=== PATIENT | male | born 1955 | race Hispanic/Latino ===

== ENCOUNTER 2019-04-01 18:12 | Inpatient (IN) | payer OTHER ==
[~2019-04-01] VITALS: Ht 167.6 cm; Wt 79.5 kg
[2019-04-01] MEDS ORDERED: HYDROCODONE/ACETAMINOPHEN 10/325 MG TAB ONE (19:05)
[2019-04-01] MEDS ORDERED: ONDANSETRON HCL 4 MG/2 ML VIAL ONE (21:37)
[2019-04-01] MEDS ORDERED: MORPHINE SULFATE 4 MG/1ML SYG ONE (21:37)
[2019-04-01 21:49] LABS: BASOPHILS % (AUTO) 0.4 % (0.0-5.0); EOSINOPHILS % (AUTO) 1.5 % (0.0-8.0); MEAN CORPUSCULAR HEMOGLOBIN 29.5 pg (27.0-33.0); MEAN CORPUSCULAR HGB CONC 33.6 g/dL (32.0-36.0); MEAN CORPUSCULAR VOLUME 87.7 fL (79-99); MONOCYTES % (AUTO) 4.1 % (3.0-13.0); PLATELET COUNT (AUTO) 189 K/uL (130-400); RED BLOOD CELL COUNT(AUTO) 3.08 MIL/uL (4.50-6.20); RED CELL DISTRIBUTION WIDTH 15.3 % (11.0-15.5); WHITE BLOOD COUNT (AUTO) 13.2 K/uL (4.8-10.8)
[2019-04-01 22:11] LABS: ALBUMIN 2.2 g/dL (3.5-5.0); BILIRUBIN,TOTAL 0.3 mg/dL (0.2-1.0); CREATININE 7.4 mg/dL (0.5-1.5); POTASSIUM 3.8 mmol/L (3.5-5.1); TOTAL PROTEIN, SERUM 6.2 g/dL (6.0-8.3)
[2019-04-01 22:14] LABS: INR 1.01 (0.85-1.15); PARTIAL THROMBOPLASTIN TIME 25.4 SEC (26.3-35.5); PROTHROMBIN TIME 10.4 SEC (9.6-11.6)
[2019-04-02] MEDS ORDERED: HYDROCODONE/ACETAMINOPHEN 5/325 MG TAB PO PRN (01:00)
[2019-04-02] MEDS: CEFTRIAXONE SODIUM 1 GM IV SCH (01:00)
[2019-04-02] MEDS ORDERED: ONDANSETRON HCL 4 MG/2 ML VIAL IVP PRN (01:00)
[2019-04-02] MEDS ORDERED: CEFTRIAXONE SODIUM 1 GM ONE (03:02)
[2019-04-02] MEDS ORDERED: HYDRALAZINE HCL 20 MG/ML VIAL ONE (03:34)
[2019-04-02] MEDS ORDERED: HYDROCODONE/ACETAMINOPHEN 5/325 MG TAB ONE (03:34)
[2019-04-02 04:09] LABS: BASOPHILS % (AUTO) 0.4 % (0.0-5.0); EOSINOPHILS % (AUTO) 0.9 % (0.0-8.0); HEMATOCRIT 26.1 % (42-54); LYMPHOCYTES % (AUTO) 10.2 % (21.0-51.0); MEAN CORPUSCULAR HEMOGLOBIN 29.8 pg (27.0-33.0); MEAN CORPUSCULAR VOLUME 87.6 fL (79-99); MONOCYTES % (AUTO) 3.6 % (3.0-13.0); NEUTROPHILS % (AUTO) 84.9 % (40.0-77.0); PLATELET COUNT (AUTO) 183 K/uL (130-400); RED BLOOD CELL COUNT(AUTO) 2.98 MIL/uL (4.50-6.20); RED CELL DISTRIBUTION WIDTH 15.5 % (11.0-15.5); WHITE BLOOD COUNT (AUTO) 11.1 K/uL (4.8-10.8)
[2019-04-02 04:15] LABS: BILIRUBIN,TOTAL 0.3 mg/dL (0.2-1.0); POTASSIUM 4.1 mmol/L (3.5-5.1); TOTAL PROTEIN, SERUM 5.8 g/dL (6.0-8.3)
[2019-04-02 07:55] VITALS: BP 141/80
--- NOTE | 2019-04-02 08:30 | NUR ---
DR. BAXTER SPOKE TO MD VIA TELEPHONE REGARDING CONSULT. ORDERS PLACED.
[2019-04-02] MEDS ORDERED: FAMOTIDINE/PF 20 MG/2 ML VIAL IV SCH (09:00)
[2019-04-02] MEDS: HEPARIN SODIUM 5000UNIT/ML 1ML VIAL SQ SCH ×3 (11:30→23:09)
[2019-04-02] MEDS: FAMOTIDINE/PF 20 MG/2 ML VIAL IV SCH ×2 (11:32→23:09)
[2019-04-02 11:41] VITALS: BP 149/66
[2019-04-02] MEDS ORDERED: ACETAMINOPHEN 325 MG TAB PO PRN (13:45)
--- NOTE | 2019-04-02 13:50 | NUR ---
DR. JAMIA LUNA PAGED REGARDING CONSULT.
--- NOTE | 2019-04-02 16:00 | NUR ---
cm note met with pt and spouse, spouse states pt resides at home with her and is independent with adls and ambulation. no dme. no services. states goes to [facility] in [facility] for meds and MD followup. states dc plan is back to home.and she can assist him at home as needed. informed that pt will need a standard walker for Postop rehab, states she will try to borrow one. will continue to followup as needed. Addendum: 04/02/19 at 1950 by NIKKO PAK CM Amended: Links added.
[2019-04-02 16:09] VITALS: BP 143/75
--- NOTE | 2019-04-02 17:45 | NUR ---
DR. LUGO SPOKE TO MD VIA TELEPHONE REGARDING CONSULT. MD PLACED ORDERS.
--- NOTE | 2019-04-02 17:55 | NUR ---
DR. BAXTER MD HERE TO SEE PATIENT. MD SPOKE TO PATIENT AND REGARDING NEED FOR POSSIBLE SURGICAL PROCEDURE, BUT PATIENT WOULD NEED MEDICAL CLEARANCE FROM CONSULTS PRIOR TO SURGICAL INTERVENTION. DR. BAXTER FILLED INFORMED CONSENT AND PLACED IN PATIENT CHART.
[2019-04-02 19:03] VITALS: BP 92/40
[2019-04-02 19:30] LABS: ABG BASE EXCESS -7.6 mmol/L (-2.0-3.0); ABG HCO3 18.6 mmol/L (21.0-28.0); ABG OXYGEN SATURATION 99.5 % (95.0-99.0); ABG PCO2 40 mmHg (35-48)
[2019-04-02 19:45] LABS: HEMATOCRIT 24.2 % (42-54); MEAN CORPUSCULAR HEMOGLOBIN 30.5 pg (27.0-33.0); MEAN CORPUSCULAR VOLUME 89.7 fL (79-99); PLATELET COUNT (AUTO) 150 K/uL (130-400); RED CELL DISTRIBUTION WIDTH 15.4 % (11.0-15.5); WHITE BLOOD COUNT (AUTO) 10.5 K/uL (4.8-10.8)
[2019-04-02 19:56] LABS: PHOSPHORUS 7.4 mg/dL (2.5-4.9)
[2019-04-02 20:00] VITALS: BP 159/71
[2019-04-02] MEDS ORDERED: METO50TA18 PO (20:09)
[2019-04-02] MEDS ORDERED: FURO80TA3 PO (20:09)
[2019-04-02] MEDS ORDERED: ATOR10 PO (20:09)
[2019-04-02] MEDS ORDERED: FOLI0.8T22 PO (20:09)
[2019-04-02 22:00] LABS: BAND NEUTROPHILS % (MANUAL) 1 % (0-2); EOSINOPHILS % (MANUAL) 1 % (1-6); LYMPHOCYTES % (MANUAL) 5 % (22-44); MONOCYTES % (MANUAL) 1 % (2-9); SEGMENTED NEUTROPHILS % 92 % (40-70)
[2019-04-02 22:02] LABS: MAN.DIFF COMMENT-IMPRESSION MANUAL DIFFERENTIAL; PLATELET MORPHOLOGY COMMENT ADEQUATE
[2019-04-02] MEDS ORDERED: FUROSEMIDE 10 MG/ML 4ML VIAL IV SCH (23:00)
[2019-04-02] MEDS: HYDROCODONE/ACETAMINOPHEN 5/325 MG TAB PO PRN (23:10)
[2019-04-02] MEDS ORDERED: FUROSEMIDE 10 MG/ML 4ML VIAL ONE (23:15)
[2019-04-03] VITALS (7 sets, daily range): BP systolic 138–190; BP diastolic 66–98
[2019-04-03] MEDS: CEFTRIAXONE SODIUM 1 GM IV SCH (00:15)
[2019-04-03] MEDS: HYDROCODONE/ACETAMINOPHEN 5/325 MG TAB PO PRN ×2 (03:24→09:35)
[2019-04-03 05:18] LABS: HEMATOCRIT 23.7 % (42-54); MEAN CORPUSCULAR HEMOGLOBIN 29.9 pg (27.0-33.0); MEAN CORPUSCULAR HGB CONC 34.3 g/dL (32.0-36.0); MEAN CORPUSCULAR VOLUME 87.3 fL (79-99); PLATELET COUNT (AUTO) 162 K/uL (130-400); RED BLOOD CELL COUNT(AUTO) 2.71 MIL/uL (4.50-6.20); RED CELL DISTRIBUTION WIDTH 15.3 % (11.0-15.5); WHITE BLOOD COUNT (AUTO) 11.7 K/uL (4.8-10.8)
[2019-04-03 05:27] LABS: MAGNESIUM 1.9 mg/dL (1.80-2.40); PHOSPHORUS 7.5 mg/dL (2.5-4.9); URIC ACID 7.9 mg/dL (2.6-7.2)
[2019-04-03 05:39] LABS: % IRON SATURATION 7.3 % (30-44)
[2019-04-03 05:45] LABS: CREATININE 8.3 mg/dL (0.5-1.5)
[2019-04-03 05:46] LABS: LYMPHOCYTES % (MANUAL) 9 % (22-44); MONOCYTES % (MANUAL) 5 % (2-9); SEGMENTED NEUTROPHILS % 86 % (40-70)
[2019-04-03 05:47] LABS: MAN.DIFF COMMENT-IMPRESSION MANUAL DIFFERENTIAL
[2019-04-03 05:48] LABS: PLATELET MORPHOLOGY COMMENT ADEQUATE
[2019-04-03] MEDS: FOLIC ACID/VITAMIN B COMP W-C 1 MG CAP/TAB PO SCH (09:00)
[2019-04-03] MEDS ORDERED: FOLIC ACID/VITAMIN B COMP W-C 1 MG CAP/TAB PO SCH (09:00)
[2019-04-03] MEDS: METOPROLOL TARTRATE 50 MG TAB PO SCH ×2 (09:37→22:30)
[2019-04-03] MEDS: FAMOTIDINE/PF 20 MG/2 ML VIAL IV SCH ×2 (09:39→22:30)
[2019-04-03] MEDS: HEPARIN SODIUM 5000UNIT/ML 1ML VIAL SQ SCH ×3 (10:00→22:36)
[2019-04-03] MEDS ORDERED: FUROSEMIDE 10 MG/ML 4ML VIAL IV SCH (10:45)
--- NOTE | 2019-04-03 11:58 | NUR ---
EVELIA DE LA CRUZ FOR CARDIOLOGY SPOKE TO EVELIA DE LA CRUZ FOR DR. BLANDON REGARDING CONSULT FOR CARDIOLOGY CLEARANCE. EVELIA DE LA CRUZ REPLIED HE WOULD BE IN TO SEE PATIENT TODAY.
[2019-04-03] MEDS ORDERED: COMPOUND IV MISC 1 EACH IVSOLN MISC PRN (13:15)
[2019-04-03 17:21] LABS: APPEARANCE,URINE CLOUDY (CLEAR); BILIRUBIN,URINE NEGATIVE (NEGATIVE); COLOR,URINE YELLOW (YELLOW); GLUCOSE, URINE (UA) 100 mg/dL (NEGATIVE); KETONES,URINE NEGATIVE (NEGATIVE); LEUKOCYTE ESTERASE ,URINE TRACE (NEGATIVE); NITRATE,URINE NEGATIVE (NEGATIVE); OCCULT BLOOD,URINE TRACE-INTACT (NEGATIVE); PH,URINE 5.5 (5.0-8.0); PROTEIN,URINE >=300 mg/dL (NEGATIVE); UROBILINOGEN,URINE 0.2 mg/dL (0.2-1.0)
[2019-04-03 17:35] LABS: BACTERIA,URINE Moderate /HPF (None Seen); MUCUS,URINE Moderate LPF (None Seen)
[2019-04-03] MEDS: CALCIUM ACETATE 667 MG CAPSULE PO SCH (18:06)
[2019-04-03] MEDS: ATORVASTATIN CALCIUM 10 MG TABLET PO SCH (22:30)
[2019-04-04] VITALS (12 sets, daily range): BP systolic 153–186; BP diastolic 64–82
[2019-04-04 05:56] LABS: BASOPHILS % (AUTO) 0.4 % (0.0-5.0); EOSINOPHILS % (AUTO) 3.6 % (0.0-8.0); HEMATOCRIT 23.7 % (42-54); LYMPHOCYTES % (AUTO) 10.8 % (21.0-51.0); MEAN CORPUSCULAR HEMOGLOBIN 30.3 pg (27.0-33.0); MEAN CORPUSCULAR HGB CONC 34.1 g/dL (32.0-36.0); MEAN CORPUSCULAR VOLUME 88.8 fL (79-99); MONOCYTES % (AUTO) 9.1 % (3.0-13.0); NEUTROPHILS % (AUTO) 76.1 % (40.0-77.0); PLATELET COUNT (AUTO) 170 K/uL (130-400); RED BLOOD CELL COUNT(AUTO) 2.67 MIL/uL (4.50-6.20); RED CELL DISTRIBUTION WIDTH 15.3 % (11.0-15.5); WHITE BLOOD COUNT (AUTO) 11.6 K/uL (4.8-10.8)
[2019-04-04 06:15] LABS: POTASSIUM 4.1 mmol/L (3.5-5.1)
[2019-04-04] MEDS: METOPROLOL TARTRATE 50 MG TAB PO SCH ×2 (06:54→20:25)
[2019-04-04 06:59] LABS: CREATININE 8.8 mg/dL (0.5-1.5)
[2019-04-04] MEDS: CALCIUM ACETATE 667 MG CAPSULE PO SCH ×3 (08:00→17:00)
[2019-04-04] MEDS: HEPARIN SODIUM 5000UNIT/ML 1ML VIAL SQ SCH ×3 (09:00→20:24)
[2019-04-04] MEDS: SODIUM BICARBONATE 650 MG TAB PO SCH (09:00)
[2019-04-04] MEDS ORDERED: EPOETIN ALFA 10,000 UNIT/ML VIAL SQ SCH (09:00)
[2019-04-04] MEDS: FOLIC ACID/VITAMIN B COMP W-C 1 MG CAP/TAB PO SCH (09:00)
--- NOTE | 2019-04-04 11:00 | NUR ---
SPOKE TO PATIENT AFTER HEARING THAT CARDIOLOIGST HAD RECOMMENDED HD PRIOR TO SURGERY ASKED RE STATUS- UNDOCUMENTED. ADVISED PT WE WOULD LOOK AFTER HIM WELL HERE PIROR TO DISCHARGE, BUT [facility] HAS TO HAVE STARTED LOOKING FOR WHEELCHAIR /WKR ON DISCHARGE. MERARIAILY MEMBER VERBALIZED UNDERSTANDING Addendum: 04/04/19 at 1246 by BABITA JUSTIN RN CM Amended: Links added.
[2019-04-04] MEDS: FAMOTIDINE/PF 20 MG/2 ML VIAL IV SCH ×2 (11:06→20:24)
[2019-04-04] MEDS: IRON SUCROSE COMPLEX 200 MG in SODIUM CHLORIDE 0.9% 50 ML IV SCH (11:06)
[2019-04-04] MEDS: AMLODIPINE BESYLATE 5 MG TAB PO SCH (11:06)
--- NOTE | 2019-04-04 13:54 | NUR ---
RD Notification Pt admitted for Left Hip Fracture, Post fall. Pt with Renal Failure (GFR 7, BUN 92, Cr 8.8), not currently on Hemodialysis. Diet advanced from NPO to Renal Non Dialysis Diet Order. RD to continue to monitor for Diet tolerance. Pt with mild to moderate protein caloric malnutrition; Protein supplementation contraindicated secondary to Renal Failure without Dialysis. Pt LBM 04/01/19. Pt monitored labs: Na 135, Cl 100, BUN 92, Cr 8.8, GFR 7, Ca 7.9, Fe 13, TIBC 178, %Sat 7.3, BNP 1550, Alb 2.0. RD to continue to monitor. Please notify RD as nutritional concerns arise. Thank you. Addendum: 04/04/19 at [address] Amended: Links added.
[2019-04-04] MEDS: CEFTRIAXONE SODIUM 500 MG VIAL IV SCH (14:30)
[2019-04-04] MEDS ORDERED: LIDOCAINE HCL 1% MDV 50ML VIAL ONE (16:07)
[2019-04-04 18:29] LABS: HEMATOCRIT 22.3 % (42-54)
[2019-04-04] MEDS ORDERED: HEPARIN SODIUM 5000UNIT/ML 1ML VIAL IJ PRN (18:30)
[2019-04-04] MEDS ORDERED: ACETAMINOPHEN 325 MG TAB PO PRN (18:30)
[2019-04-04] MEDS ORDERED: NITROGLYCERIN 0.4 MG SL TAB SL PRN (18:30)
[2019-04-04] MEDS ORDERED: 0.9% SODIUM CHLORIDE 1000 ML IV BAG IV PRN (18:30)
[2019-04-04] MEDS ORDERED: SODIUM CHLORIDE 0.9% 1000ML 1,000 ML IV PRN (18:30)
[2019-04-04 18:47] LABS: INR 1.03 (0.85-1.15); PARTIAL THROMBOPLASTIN TIME 34.4 SEC (26.3-35.5); PROTHROMBIN TIME 10.8 SEC (9.6-11.6)
[2019-04-04 18:49] LABS: ALBUMIN 1.8 g/dL (3.5-5.0); CREATININE 7.6 mg/dL (0.5-1.5)
[2019-04-04 19:03] LABS: % IRON SATURATION 68.6 % (30-44)
[2019-04-04 19:09] LABS: HEMOGLOBIN A1C 5.6 % (4.0-6.0)
[2019-04-04] MEDS: ATORVASTATIN CALCIUM 10 MG TABLET PO SCH (20:25)
--- NOTE | 2019-04-04 21:38 | NUR ---
PAIN PATIENT COMPLAINS OF SEVERE PAIN TO LEFT LEG WHEN MOVED TO PLACE BEDPAN. PATIENT WAS GIVEN TYLENOL PO BUT STATES IT IS NOT ENOUGH FOR HIS PAIN. Luis Alfredo QUACH NOTIFIED OF PATIENT STATUS AND PATIENT BEING A NEW HEMO DIALYSIS PATIENT. ORDER FOR TORDAL 15MG IV EVERY FOUR HOURS PRN GIVEN. I DID ASK IF SHE WAS SURE OF THIS ORDER DUE TO PATIENT BUN AND CREATININE AND SHE STATES YES THAT IT WAS OK TO GIVE SINCE PATIENT WAS ALREADY ON HEMO DIALYSIS.
[2019-04-04] MEDS ORDERED: KETOROLAC TROMETHAMINE 15MG/ML IV PRN (21:45)
[2019-04-05] VITALS (7 sets, daily range): BP systolic 140–198; BP diastolic 68–89
[2019-04-05] MEDS: HYDRALAZINE HCL 20 MG/ML VIAL IV PRN (04:38)
[2019-04-05 05:33] LABS: BASOPHILS % (AUTO) 0.4 % (0.0-5.0); HEMATOCRIT 24.5 % (42-54); LYMPHOCYTES % (AUTO) 10.6 % (21.0-51.0); MEAN CORPUSCULAR HEMOGLOBIN 29.8 pg (27.0-33.0); MEAN CORPUSCULAR HGB CONC 33.6 g/dL (32.0-36.0); MEAN CORPUSCULAR VOLUME 88.5 fL (79-99); MONOCYTES % (AUTO) 10.4 % (3.0-13.0); NEUTROPHILS % (AUTO) 72.6 % (40.0-77.0); PLATELET COUNT (AUTO) 190 K/uL (130-400); RED BLOOD CELL COUNT(AUTO) 2.77 MIL/uL (4.50-6.20); RED CELL DISTRIBUTION WIDTH 14.8 % (11.0-15.5); WHITE BLOOD COUNT (AUTO) 9.7 K/uL (4.8-10.8)
[2019-04-05 05:48] LABS: POTASSIUM 3.7 mmol/L (3.5-5.1)
[2019-04-05] MEDS: CALCIUM ACETATE 667 MG CAPSULE PO SCH ×3 (08:01→17:00)
[2019-04-05] MEDS: SODIUM BICARBONATE 650 MG TAB PO SCH (08:01)
[2019-04-05] MEDS: METOPROLOL TARTRATE 50 MG TAB PO SCH ×2 (08:02→20:12)
[2019-04-05] MEDS: AMLODIPINE BESYLATE 5 MG TAB PO SCH (08:03)
[2019-04-05] MEDS: HYDROCODONE/ACETAMINOPHEN 5/325 MG TAB PO PRN (08:04)
[2019-04-05] MEDS: FAMOTIDINE/PF 20 MG/2 ML VIAL IV SCH ×2 (08:04→20:12)
[2019-04-05] MEDS: HEPARIN SODIUM 5000UNIT/ML 1ML VIAL SQ SCH ×3 (08:09→20:07)
[2019-04-05] MEDS: CEFTRIAXONE SODIUM 500 MG VIAL IV SCH (09:00)
[2019-04-05] MEDS: IRON SUCROSE COMPLEX 200 MG in SODIUM CHLORIDE 0.9% 50 ML IV SCH (09:52)
[2019-04-05] MEDS: FOLIC ACID/VITAMIN B COMP W-C 1 MG CAP/TAB PO SCH (09:53)
[2019-04-05] MEDS ORDERED: CEFTRIAXONE SODIUM 1 GM ONE (10:02)
[2019-04-05] MEDS ORDERED: MORPHINE SULFATE 2 MG/ML 1ML SYG IVP PRN (11:45)
[2019-04-05] MEDS ORDERED: EPOETIN ALFA 10,000 UNIT/ML VIAL SQ SCH (15:00)
--- NOTE | 2019-04-05 16:46 | NUR ---
ANNA WELCH. NOTIFIED OF PLANS FOR SURGERY AND OF DR. SKY'S NOTE STATED OK TO PROCEED FOR SURGERY TOMORROW PLANNED
--- NOTE | 2019-04-05 17:02 | NUR ---
DR. BAXTER AWARE OF DR. SKY'S NOTES REGARDING RISK FOR SURGERY AND SCORE FOR MAJOR CARDIAC EVEN PER [facility] SCALE STATED "OK"
[2019-04-05] MEDS: ATORVASTATIN CALCIUM 20 MG TABLET PO SCH (20:12)
[2019-04-06] VITALS (24 sets, daily range): BP systolic 135–220; BP diastolic 52–99
--- NOTE | 2019-04-06 07:00 | NUR ---
Patient currently in OR PATIENT CURRENTLY IN SURGICAL PROCEDURE WITH DR. BAXTER AT START OF SHIFT.
[2019-04-06] MEDS ORDERED: ETOMIDATE 2 MG/ML 10 ML VIAL ONE (07:24)
[2019-04-06] MEDS ORDERED: LIDOCAINE PF 2% 5ML ABBOJECT ONE (07:24)
[2019-04-06] MEDS ORDERED: MIDAZOLAM HCL 1 MG/ML 2ML VIAL ONE (07:25)
[2019-04-06] MEDS ORDERED: PROPOFOL 10 MG/ML 20ML VIAL IV ONE (07:25)
[2019-04-06] MEDS ORDERED: ROCURONIUM 10MG/1ML SYR 10 MG/ML ML ONE (07:25)
[2019-04-06] MEDS ORDERED: CEFAZOLIN SODIUM 1 GM VIAL ONE (07:32)
[2019-04-06] MEDS: CALCIUM ACETATE 667 MG CAPSULE PO SCH ×3 (08:00→16:59)
[2019-04-06 08:12] LABS: HEPATITIS Bs ANTIGEN SCREEN P Negative (Negative)
[2019-04-06] MEDS ORDERED: NOREPINEPHRINE BITARTRATE 1 MG/1 ML ML IV ONE (08:40)
[2019-04-06] MEDS ORDERED: ROPIVACAINE 0.5% 5MG/ML 30ML IJ ONE (08:52)
[2019-04-06] MEDS: CEFTRIAXONE SODIUM 500 MG VIAL IV SCH (09:00)
[2019-04-06] MEDS: FAMOTIDINE/PF 20 MG/2 ML VIAL IV SCH ×2 (09:00→20:50)
[2019-04-06] MEDS: HEPARIN SODIUM 5000UNIT/ML 1ML VIAL SQ SCH ×3 (09:00→20:50)
[2019-04-06] MEDS ORDERED: GLYCOPYRROLATE 1 MG/5 ML SYRINGE ONE (09:02)
[2019-04-06] MEDS ORDERED: NEOSTIGMINE 5MG/5ML SYR IV ONE (09:02)
[2019-04-06] MEDS ORDERED: POTASSIUM CHLORIDE 20MEQ/100ML 100 ML IV PRN (09:45)
[2019-04-06] MEDS: ACETAMINOPHEN EXTRA STRENGTH 500 MG TABLET PO SCH ×2 (09:45→16:58)
[2019-04-06] MEDS ORDERED: MORPHINE SULFATE 4 MG/1ML SYG ONE (10:26)
--- NOTE | 2019-04-06 11:02 | NUR ---
BASSAM LOGAN AWARE OF PT'S BP, OK TO SEND PT TO HIS RM. PT WITH DIALYSIS ACCESS TO RT NECK AREA, INTACT. PT STABLE. Addendum: 04/06/19 at 1302 by CALLIE PIRES RN RN Amended: Links added.
[2019-04-06] MEDS: HYDRALAZINE HCL 20 MG/ML VIAL IV PRN (12:10)
[2019-04-06] MEDS: METOPROLOL TARTRATE 50 MG TAB PO SCH ×2 (12:11→20:50)
[2019-04-06] MEDS: AMLODIPINE BESYLATE 5 MG TAB PO SCH (12:12)
--- NOTE | 2019-04-06 13:35 | NUR ---
DIET EDUCATION RD provided Renal Dialysis Diet Education to Pt's Spouse as spouse was resting and is sole meal provider in household. RD reviewed reference materials with Pt's . Pt's with questions, RD answered all questions. RD also provided Maori/Guamanian translation of materials for Pt to review. Pt to further review reference materials. HERBIE encouraged Pt and to notify as questions and concerns arise. Addendum: 04/06/19 at [address] Amended: Links added.
--- NOTE | 2019-04-06 13:37 | NUR ---
ATTEMPTED TO INSTRUCT PATIENT ON TECHNIQUE, PT UNABLE TO STAY AWAKE DURINGN INSTRUCTIONS. ATTEMPTED TWICE TO INSTRUCT. UNABLE TO PERFORM IS, INSTRUCTED FAMILY VALERIZULEMA WE WOULD REINSTRUCT WHEN PT IS APPROPRIATE. Addendum: 04/06/19 at 1339 [address]RA RT Amended: Links added.
--- NOTE | 2019-04-06 13:40 | NUR ---
RD FOLLOW UP NOTE Pt NPO at time of screen. RD provided Dialysis Diet Education. Post diet education, Diet advanced to Clear Liquid - Renal Dialysis Diet order. Pt was being fed by and seeming to tolerate. RD to continue to monitor. Recommend to advance diet as tolerated to Renal Dialysis Diet, Regular texture. Once diet is advanced, Recommend Nepro QD with breakfast meal. Pt LBM 04/01/19; Recommend stool softener/laxative. Pt monitored labs: BUN 65, Cr 7.0, GFR 8, Ca 7.5, Alb 1.8. RD to continue to monitor. Please notify RD as additional nutritional concerns arise. Thank you. Addendum: 04/06/19 at [address] Amended: Links added.
[2019-04-06] MEDS: LACTULOSE 20 GM/30 ML UDCUP PO PRN (16:52)
[2019-04-06] MEDS: SODIUM BICARBONATE 650 MG TAB PO SCH (16:52)
[2019-04-06] MEDS: FOLIC ACID/VITAMIN B COMP W-C 1 MG CAP/TAB PO SCH (16:52)
[2019-04-06] MEDS: HYDROCODONE/ACETAMINOPHEN 5/325 MG TAB PO PRN (16:52)
--- NOTE | 2019-04-06 17:00 | NUR ---
HELD PHOSLO BECAUSE PT NOT WANTING TO EAT AT THIS TIME.
[2019-04-06] MEDS ORDERED: CEFTRIAXONE SODIUM 1 GM ONE (17:17)
[2019-04-06] MEDS: ATORVASTATIN CALCIUM 20 MG TABLET PO SCH (20:49)
[2019-04-07 03:31] VITALS: BP 157/64
[2019-04-07 04:10] LABS: HEMATOCRIT 21.9 % (42-54); MEAN CORPUSCULAR HEMOGLOBIN 30.2 pg (27.0-33.0); MEAN CORPUSCULAR HGB CONC 34.4 g/dL (32.0-36.0); MEAN CORPUSCULAR VOLUME 87.6 fL (79-99); PLATELET COUNT (AUTO) 225 K/uL (130-400); RED CELL DISTRIBUTION WIDTH 14.8 % (11.0-15.5); WHITE BLOOD COUNT (AUTO) 10.8 K/uL (4.8-10.8)
[2019-04-07 04:17] LABS: CREATININE 6.2 mg/dL (0.5-1.5); POTASSIUM 4.3 mmol/L (3.5-5.1)
[2019-04-07] MEDS: ACETAMINOPHEN EXTRA STRENGTH 500 MG TABLET PO SCH ×3 (04:23→17:45)
--- NOTE | 2019-04-07 07:59 | NUR ---
HEMATURIA REPORTED PRESENCE OF HEMATURIA WITH BLOOD CLOT IN ANDERSEN CATHETER TUBE. TOLD ME TO HOLD ANTICOAGULANTS AND HE WOULD BE IN SHORTLY TO ASSESS PATIENT. ALSO ASKED ME TO CONTACT DR. BAXTER SINCE ANDERSEN WAS PLACED YESTERDAY DURING SURGICAL PROCEDURE AND DR. BAXTER ALSO ORDERED TO REMOVE ANDERSEN CATHETER POD#2. I [address] BAXTER AND TOLD ME IT WAS OKAY TO REMOVE ANDERSEN CATHETER IF HOSPITALIST OR CONSULT MD'S ORDER TO REMOVE ANDERSEN.
[2019-04-07 08:00] VITALS: BP 151/64
[2019-04-07] MEDS: HYDROCODONE/ACETAMINOPHEN 5/325 MG TAB PO PRN ×2 (08:13→21:55)
--- NOTE | 2019-04-07 08:15 | NUR ---
DR. DONAVON SKY MD HERE TO SEE PATIENT. ORDERED OKAY TO LEAVE ANDERSEN CATHETER FOR NOW AND CONTINUE TO MONITOR URINE COLOR OUTPUT. THEN ORDERED TO PERFORM BLADDER SCAN.
[2019-04-07] MEDS: CALCIUM ACETATE 667 MG CAPSULE PO SCH ×3 (08:46→16:52)
[2019-04-07] MEDS: FAMOTIDINE/PF 20 MG/2 ML VIAL IV SCH ×2 (09:00→21:55)
--- NOTE | 2019-04-07 11:30 | NUR ---
MET WITH FAMILY AT BEDSIDE ADVISED PT AND FAMILY THAT FAR HD GOES, THERE IS NO [facility] IN THE [facility] FOR PTS WITHOUT ID/SSS, EXCEPT ONCE PER YEAR [facility] HAS A [facility]TERY/ APPLICATION PROGRAM FOR A FEW CHAIRS, AND THAT ENDED LAST WEEK AND WILL NOT COME AROUND AGAIN UNTIL NEXT YEAR. VERBALIZED UNDERSTANDING ADVISED PT AND FAMILY ALSO THAT PT WILL NEED A WKR AND A WHEEL CHAIR AND TO START LOOKING WHERE THEY CAN BORROW OR BUY THESE ITEM, PREVIOUSLY SUGGESTED AT FIRST ASSESSMENT. PT IS STILL WEAK, BUT WILL BE CLINICALLY READY FOR DISCHARGE IN A FEW DAYS , AND THEY NEED TO START PREPARING
[2019-04-07 11:34] VITALS: BP 142/61
[2019-04-07] MEDS ORDERED: CEFTRIAXONE SODIUM 1 GM IVP SCH (12:45)
[2019-04-07] MEDS: CEFTRIAXONE SODIUM 500 MG VIAL IV SCH (13:00)
[2019-04-07] MEDS ORDERED: CEFTRIAXONE SODIUM 1 GM ONE (13:01)
[2019-04-07] MEDS: METOPROLOL TARTRATE 50 MG TAB PO SCH ×2 (13:12→21:55)
[2019-04-07] MEDS: SODIUM BICARBONATE 650 MG TAB PO SCH (13:12)
[2019-04-07] MEDS: ISOSORBIDE DINITRATE 20 MG TABLET PO SCH ×3 (13:12→21:56)
[2019-04-07] MEDS: FOLIC ACID/VITAMIN B COMP W-C 1 MG CAP/TAB PO SCH (13:13)
[2019-04-07] MEDS: HYDRALAZINE HCL 25 MG TABLET PO SCH ×3 (13:13→21:55)
[2019-04-07] MEDS: AMLODIPINE BESYLATE 5 MG TAB PO SCH (13:13)
[2019-04-07] MEDS: FAMOTIDINE 20MG TAB 20 MG TAB PO SCH (13:18)
[2019-04-07] MEDS ORDERED: PHARMACY COMMUNICATION MISC SCH (14:15)
[2019-04-07 16:03] VITALS: BP 124/55
[2019-04-07] MEDS ORDERED: HEPARIN SODIUM 5000UNIT/ML 1ML VIAL IJ PRN (17:15)
[2019-04-07 19:00] VITALS: BP 147/68
[2019-04-07] MEDS ORDERED: EPOETIN ALFA 10,000 UNIT/ML VIAL SQ ONE (21:00)
[2019-04-07] MEDS: HEPARIN SODIUM 5000UNIT/ML 1ML VIAL SQ SCH (21:54)
[2019-04-07] MEDS: ATORVASTATIN CALCIUM 20 MG TABLET PO SCH (21:55)
[2019-04-07 23:16] VITALS: BP 146/65
[2019-04-08] MEDS: ACETAMINOPHEN EXTRA STRENGTH 500 MG TABLET PO SCH ×3 (01:18→18:02)
[2019-04-08 03:52] VITALS: BP 155/67
[2019-04-08 04:56] LABS: MEAN CORPUSCULAR HEMOGLOBIN 29.7 pg (27.0-33.0); MEAN CORPUSCULAR HGB CONC 33.8 g/dL (32.0-36.0); PLATELET COUNT (AUTO) 205 K/uL (130-400); RED BLOOD CELL COUNT(AUTO) 2.28 MIL/uL (4.50-6.20); RED CELL DISTRIBUTION WIDTH 14.6 % (11.0-15.5); WHITE BLOOD COUNT (AUTO) 11.1 K/uL (4.8-10.8)
[2019-04-08 05:03] LABS: CREATININE 4.4 mg/dL (0.5-1.5); POTASSIUM 3.9 mmol/L (3.5-5.1)
--- NOTE | 2019-04-08 05:46 | NUR ---
CRITICAL RESULTS CALLED IN TO HOSPITALIST CEDRICK CEJA. NEW ORDERS RECEIVED AND CARRIED OUT. Addendum: 04/08/19 at 0547 by ESTHER CASTILLO RN RN Amended: Links added.
[2019-04-08] MEDS: LACTULOSE 20 GM/30 ML UDCUP PO PRN (07:01)
[2019-04-08 07:58] VITALS: BP 169/77
[2019-04-08] MEDS: FAMOTIDINE/PF 20 MG/2 ML VIAL IV SCH ×2 (08:27→21:26)
[2019-04-08] MEDS: HYDRALAZINE HCL 25 MG TABLET PO SCH ×3 (08:28→21:26)
[2019-04-08] MEDS: SODIUM BICARBONATE 650 MG TAB PO SCH (08:28)
[2019-04-08] MEDS: AMLODIPINE BESYLATE 5 MG TAB PO SCH (08:28)
[2019-04-08] MEDS: CALCIUM ACETATE 667 MG CAPSULE PO SCH ×3 (08:28→17:00)
[2019-04-08] MEDS: FOLIC ACID/VITAMIN B COMP W-C 1 MG CAP/TAB PO SCH (08:28)
[2019-04-08] MEDS: METOPROLOL TARTRATE 50 MG TAB PO SCH ×2 (08:28→21:25)
[2019-04-08] MEDS: FAMOTIDINE 20MG TAB 20 MG TAB PO SCH (08:28)
[2019-04-08] MEDS: ISOSORBIDE DINITRATE 20 MG TABLET PO SCH ×3 (08:29→21:26)
[2019-04-08] MEDS: HEPARIN SODIUM 5000UNIT/ML 1ML VIAL SQ SCH (09:00)
--- NOTE | 2019-04-08 11:30 | NUR ---
PT TOLERATED PROCEDURE WELL VITAL SIGNS STABLE
[2019-04-08 12:00] VITALS: BP 143/67
[2019-04-08] MEDS: CEFTRIAXONE SODIUM 500 MG VIAL IV SCH (13:49)
[2019-04-08 16:00] VITALS: BP 143/58
[2019-04-08 19:28] VITALS: BP 147/63
[2019-04-08] MEDS: ATORVASTATIN CALCIUM 20 MG TABLET PO SCH (21:26)
[2019-04-08 23:00] VITALS: BP 140/60
[2019-04-09] MEDS: ACETAMINOPHEN EXTRA STRENGTH 500 MG TABLET PO SCH ×3 (01:59→17:08)
[2019-04-09 03:00] VITALS: BP 145/67
[2019-04-09 06:19] LABS: BASOPHILS % (AUTO) 0.4 % (0.0-5.0); EOSINOPHILS % (AUTO) 2.3 % (0.0-8.0); HEMATOCRIT 22.7 % (42-54); LYMPHOCYTES % (AUTO) 8.1 % (21.0-51.0); MEAN CORPUSCULAR HEMOGLOBIN 30.7 pg (27.0-33.0); MEAN CORPUSCULAR HGB CONC 34.4 g/dL (32.0-36.0); MEAN CORPUSCULAR VOLUME 89.1 fL (79-99); NEUTROPHILS % (AUTO) 81.2 % (40.0-77.0); PLATELET COUNT (AUTO) 224 K/uL (130-400); RED BLOOD CELL COUNT(AUTO) 2.55 MIL/uL (4.50-6.20); RED CELL DISTRIBUTION WIDTH 14.7 % (11.0-15.5); WHITE BLOOD COUNT (AUTO) 11.9 K/uL (4.8-10.8)
[2019-04-09 06:30] LABS: CREATININE 5.5 mg/dL (0.5-1.5); POTASSIUM 3.9 mmol/L (3.5-5.1)
[2019-04-09 08:00] VITALS: BP 150/67
[2019-04-09] MEDS: FAMOTIDINE 20MG TAB 20 MG TAB PO SCH (08:18)
[2019-04-09] MEDS: METOPROLOL TARTRATE 50 MG TAB PO SCH (08:18)
[2019-04-09] MEDS: HYDRALAZINE HCL 25 MG TABLET PO SCH ×2 (08:19→17:07)
[2019-04-09] MEDS: SODIUM BICARBONATE 650 MG TAB PO SCH (08:19)
[2019-04-09] MEDS: FOLIC ACID/VITAMIN B COMP W-C 1 MG CAP/TAB PO SCH (08:19)
[2019-04-09] MEDS: ISOSORBIDE DINITRATE 20 MG TABLET PO SCH ×2 (08:20→17:07)
[2019-04-09] MEDS: CALCIUM ACETATE 667 MG CAPSULE PO SCH ×3 (08:20→17:07)
[2019-04-09] MEDS: AMLODIPINE BESYLATE 5 MG TAB PO SCH (08:20)
[2019-04-09] MEDS: HYDROCODONE/ACETAMINOPHEN 5/325 MG TAB PO PRN (08:22)
[2019-04-09] MEDS: HEPARIN SODIUM 5000UNIT/ML 1ML VIAL SQ SCH ×2 (08:25→21:22)
[2019-04-09] MEDS: FAMOTIDINE/PF 20 MG/2 ML VIAL IV SCH ×2 (08:36→21:23)
[2019-04-09 11:44] VITALS: BP 127/55
--- NOTE | 2019-04-09 12:00 | NUR ---
Nutrition Follow-up: Pt. on Renal dialysis diet with good p.o. intake, as per pt. Labs reviewed(Alb 1.8, BG 94). Spoke with pt. regarding protein supplementation and pt. agreed to try. LBM: 04/09/19. SR-16 elastic. Recommendations: 1) Rec. 30ml ProMod TID with meals. 2) Continue to monitor pt's nutritional status. 3) Consult RD as nutrition concerns arise. Addendum: 04/09/19 at [address] Amended: Links added.
[2019-04-09] MEDS ORDERED: CEFTRIAXONE SODIUM 1 GM ONE (12:33)
[2019-04-09] MEDS: CEFTRIAXONE SODIUM 500 MG VIAL IV SCH (13:00)
[2019-04-09 16:00] VITALS: BP 131/53
--- NOTE | 2019-04-09 17:04 | NUR ---
i spoke to dialysis nurse [place] and pt is on the list for dialysis today, and will be done at some point today.
--- NOTE | 2019-04-09 17:15 | NUR ---
dressing changed to left hip; pt has a well approx. inc.line with ha in place, mod. edema, no redness or edema noted, no fresh drainage; clean 4x4 gauze and medipore tape applied; pt esperanza. well.
[2019-04-09 20:00] VITALS: BP 133/57
[2019-04-10] VITALS: BP 138/64
[2019-04-10] MEDS: ISOSORBIDE DINITRATE 20 MG TABLET PO SCH ×3 (00:03→15:31)
[2019-04-10] MEDS: HYDROCODONE/ACETAMINOPHEN 5/325 MG TAB PO PRN ×3 (00:03→15:31)
[2019-04-10] MEDS: ATORVASTATIN CALCIUM 20 MG TABLET PO SCH (00:03)
[2019-04-10] MEDS: HYDRALAZINE HCL 25 MG TABLET PO SCH ×3 (00:03→15:31)
[2019-04-10] MEDS: METOPROLOL TARTRATE 50 MG TAB PO SCH ×2 (00:03→07:44)
[2019-04-10] MEDS: ACETAMINOPHEN EXTRA STRENGTH 500 MG TABLET PO SCH ×3 (01:45→16:51)
[2019-04-10 04:00] VITALS: BP 143/64
[2019-04-10] MEDS: FOLIC ACID/VITAMIN B COMP W-C 1 MG CAP/TAB PO SCH (07:45)
[2019-04-10] MEDS: CALCIUM ACETATE 667 MG CAPSULE PO SCH ×2 (07:45→12:21)
[2019-04-10] MEDS: FAMOTIDINE 20MG TAB 20 MG TAB PO SCH (07:45)
[2019-04-10] MEDS: AMLODIPINE BESYLATE 5 MG TAB PO SCH (07:45)
[2019-04-10] MEDS: SODIUM BICARBONATE 650 MG TAB PO SCH (07:45)
[2019-04-10] MEDS: HEPARIN SODIUM 5000UNIT/ML 1ML VIAL SQ SCH (07:49)
[2019-04-10] MEDS: FAMOTIDINE/PF 20 MG/2 ML VIAL IV SCH (07:52)
[2019-04-10 07:58] VITALS: BP 128/60
--- NOTE | 2019-04-10 10:47 | NUR ---
Pt IS MAX ASSIST BED MOB AND 2 PERSON ASSIST FOR TRANSFER AND GAIT. Pt IS DIZZY HAS PAIN TO lle AND IS UNSAFE WITH WALKER. SPOUSE HAS NO OTHER HELP IN HOME.THERAPIST RECOMMENDS SNF PLACEMENT BUT FAMILY DOESNT HAVE MEDICAL COVERAGE. NURSING AWARE THAT PATIENT IS UNSAFE DC HOME. Addendum: 04/10/19 at 1050 by AURORA SKY, PT PT Amended: Links added.
[2019-04-10] MEDS ORDERED: AMLO5TAB4 PO (11:03)
[2019-04-10] MEDS ORDERED: ISOS20TA PO (11:03)
[2019-04-10 11:49] VITALS: BP 131/46
[2019-04-10] MEDS ORDERED: CEFTRIAXONE SODIUM 1 GM ONE (12:08)
[2019-04-10] MEDS: CEFTRIAXONE SODIUM 500 MG VIAL IV SCH (12:28)
--- NOTE | 2019-04-10 12:33 | NUR ---
I have talked to patient and about him going home today; she did call a family friend while I was in the room and made arrangements to get picked up late this afternoon; i have also instructed her on how to care for a varela cathetor, how to empty, signs and symptoms of urine retention to watch for and go to ED if present; i have also instructed her on wound care for left hip inc. and given her extra gauze and betadine to use at home; physical therapy has given them a walker from there dep. to take home since the was not able to procure one; she does state they have a wheelchair at home.
[2019-04-10 16:00] VITALS: BP 134/60
--- NOTE | 2019-04-10 16:53 | NUR ---
non tunneled dialysis line removed per order from dr Simpson; pt not receiving dialysis out of hospital; after lying pt down flat, suture cut holding line inplace, line easily removed from neck and tip examined and it is intact; no bleeding noted from site; pressure applied for 20 minutes then occlusive pressure type dressing applied; pt esperanza. procedure well; i have also capped pt's line to varela that had irrigant running; note the irrigant has been on hold and pt has pale yellow urine. i have asked pt if she has called for their ride and she stated no but that she would.
--- NOTE | 2019-04-10 17:28 | NUR ---
i have given d/c instructions to patient and his ; included was varela care (I'm sending with regular varela but have given them a leg bag), activity weight bearing as tolerated, wound care (i have given them extra gauze supplies); i have gone over signs and symptoms to report to md and to call 911 for any emergency; they have stated understanding of all d/c instrctions; telemetry removed and iv access removed.
== END 2019-04-10 18:09 | disposition home or self-care (01) | DRG 469 ==
LOC: EDH 18:12 → EDHIP 18:13 → 4AH 04-02 06:39
PROVIDERS: ADMIT Internal Medicine; ATTEND Internal Medicine
PROC: 5A09357 Assistance with Respiratory Ventilation, Less than 24 Consecutive Hours, Continuous Positive Airway Pressure (ICD-10-PCS; 2019-04-02)
PROC: B543ZZA Ultrasonography of Right Jugular Veins, Guidance (ICD-10-PCS; 2019-04-04)
PROC: 05HM33Z Insertion of Infusion Device into Right Internal Jugular Vein, Percutaneous Approach (ICD-10-PCS; 2019-04-04)
PROC: B5131ZA Fluoroscopy of Right Jugular Veins using Low Osmolar Contrast, Guidance (ICD-10-PCS; 2019-04-04)
PROC: 5A1D70Z Performance of Urinary Filtration, Intermittent, Less than 6 Hours Per Day (ICD-10-PCS; 2019-04-04)
PROC: 5A1D70Z Performance of Urinary Filtration, Intermittent, Less than 6 Hours Per Day (ICD-10-PCS; 2019-04-04)
PROC: 30233N1 Transfusion of Nonautologous Red Blood Cells into Peripheral Vein, Percutaneous Approach (ICD-10-PCS; 2019-04-04)
PROC: 5A1D70Z Performance of Urinary Filtration, Intermittent, Less than 6 Hours Per Day (ICD-10-PCS; 2019-04-05)
PROC: 0SRS0JA Replacement of Left Hip Joint, Femoral Surface with Synthetic Substitute, Uncemented, Open Approach (ICD-10-PCS; principal; 2019-04-06 07:30)
PROC: 5A1D70Z Performance of Urinary Filtration, Intermittent, Less than 6 Hours Per Day (ICD-10-PCS; 2019-04-07)
PROC: 5A1D70Z Performance of Urinary Filtration, Intermittent, Less than 6 Hours Per Day (ICD-10-PCS; 2019-04-09)
DX: S72.032A Displaced midcervical fracture of left femur, initial encounter for closed fracture (principal); E43 Unspecified severe protein-calorie malnutrition; N18.6 End stage renal disease; N17.9 Acute kidney failure, unspecified; E87.2 Acidosis; I13.2 Hypertensive heart and chronic kidney disease with heart failure and with stage 5 chronic kidney disease, or end stage renal disease; N39.0 Urinary tract infection, site not specified; E11.21 Type 2 diabetes mellitus with diabetic nephropathy; D72.829 Elevated white blood cell count, unspecified; D64.9 Anemia, unspecified; D63.8 Anemia in other chronic diseases classified elsewhere; E11.22 Type 2 diabetes mellitus with diabetic chronic kidney disease; E11.51 Type 2 diabetes mellitus with diabetic peripheral angiopathy without gangrene; I50.9 Heart failure, unspecified; I45.10 Unspecified right bundle-branch block; K57.30 Diverticulosis of large intestine without perforation or abscess without bleeding; N40.0 Benign prostatic hyperplasia without lower urinary tract symptoms; R31.0 Gross hematuria; W01.0XXA Fall on same level from slipping, tripping and stumbling without subsequent striking against object, initial encounter; Y93.89 Activity, other specified; Y92.89 Other specified places as the place of occurrence of the external cause; Y99.8 Other external cause status; Z79.4 Long term (current) use of insulin; Z87.891 Personal history of nicotine dependence; Z91.19 Patient's noncompliance with other medical treatment and regimen; Z83.3 Family history of diabetes mellitus
CPT/HCPCS: 36415; 36430; 36556; 36600; 70450; 71045; 72192; 73502; 73552; 74176; 74430; 76770; 77001; 78582; 80048; 80053; 80061; 81001; 82040; 82140; 82565; 82728; 82803; 82948; 83036; 83540; 83550; 83735; 83880; 84100; 84520; 84550; 85014; 85018; 85025; 85027; 85378; 85610; 85730; 86701; 86704; 86706; 86850; 86900; 86901; 86922; 87340; 87390; 87520; 90935; 93005; 93306; 94660; 97039; A4344; A9540; A9558; C1752; C1776; G0378; J0360; J0690; J0696; J0885; J1644; J1756; J1940; J2001; J2250; J2270; J2405; J2704; J2710; J2795; J3490; J7030; J7040; P9016

== ENCOUNTER 2019-04-13 10:04 | Emergency (ER) | payer OTHER ==
[~2019-04-13 10:04] MED LIST: AMLO5TAB4 PO; ATOR10 PO; FOLI0.8T22 PO; FURO80TA3 PO; ISOS20TA PO; METO50TA18 PO
[2019-04-13] MEDS ORDERED: TRAMADOL HCL 50 MG TABLET ONE (10:48)
[2019-04-13 11:41] LABS: APPEARANCE,URINE CLOUDY (CLEAR); BILIRUBIN,URINE NEGATIVE (NEGATIVE); COLOR,URINE RED (YELLOW); GLUCOSE, URINE (UA) 100 mg/dL (NEGATIVE); KETONES,URINE NEGATIVE (NEGATIVE); LEUKOCYTE ESTERASE ,URINE TRACE (NEGATIVE); NITRATE,URINE NEGATIVE (NEGATIVE); OCCULT BLOOD,URINE LARGE (NEGATIVE); PH,URINE 7.5 (5.0-8.0); PROTEIN,URINE >=300 mg/dL (NEGATIVE); UROBILINOGEN,URINE 0.2 mg/dL (0.2-1.0)
[2019-04-13 11:58] LABS: BACTERIA,URINE Rare /HPF (None Seen); RBC,URINE TNTC /HPF (0-1); SQUAMOUS EPITHELIAL CELL,UR Rare /HPF (0-2)
== END 2019-04-13 12:23 | disposition home or self-care (01) ==
LOC: EDH 10:04
DX: T83.098A Other mechanical complication of other urinary catheter, initial encounter (principal); R31.0 Gross hematuria; I12.9 Hypertensive chronic kidney disease with stage 1 through stage 4 chronic kidney disease, or unspecified chronic kidney disease; E11.22 Type 2 diabetes mellitus with diabetic chronic kidney disease; N18.9 Chronic kidney disease, unspecified
CPT/HCPCS: 81001

== ENCOUNTER 2019-07-21 20:01 | Emergency (ER) | payer OTHER ==
[2019-07-21] MEDS ORDERED: ONDANSETRON HCL 4 MG/2 ML VIAL ONE (20:29)
[2019-07-21] MEDS ORDERED: MORPHINE SULFATE 4 MG/1ML SYG ONE (20:29)
[2019-07-21 20:35] LABS: BASOPHILS % (AUTO) 0.1 % (0.0-5.0); EOSINOPHILS % (AUTO) 6.2 % (0.0-8.0); HEMATOCRIT 27.5 % (42-54); LYMPHOCYTES % (AUTO) 9.2 % (21.0-51.0); MEAN CORPUSCULAR HEMOGLOBIN 28.2 pg (27.0-33.0); MEAN CORPUSCULAR HGB CONC 31.3 g/dL (32.0-36.0); MEAN CORPUSCULAR VOLUME 90.2 fL (79-99); MONOCYTES % (AUTO) 4.1 % (3.0-13.0); PLATELET COUNT (AUTO) 171 K/uL (130-400); RED BLOOD CELL COUNT(AUTO) 3.05 MIL/uL (4.50-6.20)
[2019-07-21 20:52] LABS: ALBUMIN 2.4 g/dL (3.5-5.0); BILIRUBIN,TOTAL 0.2 mg/dL (0.2-1.0); POTASSIUM 5.1 mmol/L (3.5-5.1); TOTAL PROTEIN, SERUM 6.3 g/dL (6.0-8.3)
[2019-07-21 21:30] LABS: APPEARANCE,URINE Cloudy (CLEAR); BILIRUBIN,URINE Negative (NEGATIVE); COLOR,URINE Yellow (YELLOW); GLUCOSE, URINE (UA) 250 mg/dL (NEGATIVE); KETONES,URINE Negative (NEGATIVE); LEUKOCYTE ESTERASE ,URINE Negative (NEGATIVE); NITRATE,URINE Negative (NEGATIVE); OCCULT BLOOD,URINE Trace (NEGATIVE); PROTEIN,URINE >=1000 mg/dL (NEGATIVE); UROBILINOGEN,URINE 0.2 mg/dL (0.2-1.0)
[2019-07-21 22:02] LABS: BACTERIA,URINE Few /HPF (None Seen); MUCUS,URINE Few LPF (None Seen); SQUAMOUS EPITHELIAL CELL,UR 0-2 /HPF (0-2)
[2019-07-21 22:03] LABS: AMORPHOUS SEDIMENT,UR Moderate /LPF (None Seen)
== END 2019-07-21 23:03 | disposition home or self-care (01) ==
LOC: EDH 20:01
DX: K59.00 Constipation, unspecified (principal); N28.9 Disorder of kidney and ureter, unspecified; G89.29 Other chronic pain; E11.9 Type 2 diabetes mellitus without complications; I10 Essential (primary) hypertension
CPT/HCPCS: 36415; 74176; 80053; 81001; 82150; 83690; 85025; 96374; 96375; 99285; J2270; J2405